=== PATIENT | male | born 1935 | race Caucasian/White ===

== ENCOUNTER 2024-05-17 08:45 | Outpatient (AMB) | payer MEDICARE, SELFPAY ==
[2024-05-17 09:06] VITALS: BMI 26.4
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
== END 2024-05-17 10:35 | disposition home or self-care (01) ==
PROVIDERS: Referring Provider Physician Assistant; Visit Provider Physician Assistant
DX: M50.90 Cervical disc disorder, unspecified, unspecified cervical region (principal)
CPT/HCPCS: 99204

== ENCOUNTER 2024-05-17 08:45 | Outpatient (REF) | payer MEDICARE, SELFPAY ==
--- NOTE | ~2024-05-17 | XR_ITS ---
EXAMINATION: XR LUMBOSACRAL SPINE WITH OBLIQUES CLINICAL INFORMATION: Low back pain COMPARISON: None available. TECHNIQUE: AP, lateral extension views FINDINGS: There are 5 not ribs bearing vertebral bodies with narrowing of L1-L2, L2-L3, L3-L4, L4-L5, L5-S1 and grade 1 anterior listhesis of L4 over L5 there is no evidence of fractures or subluxations. There is incidental findings of calcified plaques at the lung bases. XR/XR lumbar spine 4V min IMPRESSION: Multilevel degenerative changes with grade 1 anterior listhesis of L4 over L5.
--- NOTE | ~2024-05-17 | XR_ITS ---
EXAMINATION: XR CERVICAL SPINE CLINICAL INFORMATION: Cervical discs disorder COMPARISON: None available. TECHNIQUE: AP, lateral, lateral flexion and extension views. FINDINGS: There are multilevel changes of degenerative spondylosis with marked narrowing of C3-C4, C4-C5, C5-C6, C6-C7 with marginal spurring and bridging osteophytes formation at the level of C4-C5, C5-C6 and C6-C7. There is no significant instability seen on the flexion and extension views. Soft tissues are unremarkable. 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
== END 2024-05-17 08:46 | disposition home or self-care (01) ==
LOC: HO.HOSX 08:45
PROVIDERS: Visit Provider Physician Assistant
DX: M47.22 Other spondylosis with radiculopathy, cervical region (principal); M48.02 Spinal stenosis, cervical region; M51.36 Other intervertebral disc degeneration, lumbar region
CPT/HCPCS: 72050; 72110; 99202